=== PATIENT | male | born 1985 | race Caucasian/White ===

== ENCOUNTER 2020-02-20 10:38 | Emergency (ER) | payer OTHER, SELFPAY ==
--- NOTE | ~2020-02-20 | CT_ITS ---
EXAMINATION: CT lumbar spine wo con DATE: 02/20/2020 12:31 INDICATION: Low back pain. Injury. TECHNIQUE: Computed tomography (CT) of the lumbar spine was performed without intravenous contrast. A utomated exposure control and iterative reconstruction technique were employed. The dose-length produ ct was 1260.10 mGy-cm. COMPARISON: None FINDINGS: There is 7 degrees levocurvature of lumbar spine. Vertebral body heights are normal. There is mildly decreased disc height at L4-L5 and L5-S1. The following disc levels are specifically discus sed: L1-L2: The disc does not extend beyond the endplate margin. There is mild bilateral facet joint osteo arthritis. There is no neural foraminal stenosis. There is no central canal stenosis. L2-L3: There is a left foraminal protrusion. There is mild right and moderate left facet joint osteoa rthritis. There is mild left neural foraminal stenosis. There is no central canal stenosis. L3-L4: The disc is mildly bulging. There is mild bilateral facet joint osteoarthritis. There is mild left neural foraminal stenosis. There is mild central canal stenosis. L4-L5: The disc is bulging. There is mild bilateral facet joint osteoarthritis. There is mild bilater al neural foraminal stenosis. There is mild central canal stenosis. L5-S1: The disc is bulging. There is mild bilateral facet joint osteoarthritis. There is mild bilater al neural foraminal stenosis. There is mild central canal stenosis. IMPRESSION: 1. Mild lumbar spondylosis. Reviewed, dictated and finalized at location A. IMPRESSION: 1. Mild lumbar spondylosis.
[2020-02-20 11:22] VITALS: BP 135/95; PULSE 67; RESP 16; TEMP 36.8; O2SAT 98
--- NOTE | 2020-02-20 12:20 | ED.BACK ---
HPI - Back Pain/Injury General Chief Complaint: Back Pain/Injury Stated Complaint: Back Pain Time Seen by Provider: 02/20/20 12:09 Source: patient Mode of arrival: ambulatory Limitations: no limitations History of Present Illness HPI Narrative: This is a 34-year-old male that presents the emergency department for low back pain after a lifting injury. Reports he was lifting this morning. Reports when he went to pick out hand the weight the second time he felt pain in his low back. Reports the pain has been constant since. It is worse with movement and relieved with rest. He has not taken any pain medication. Denies saddle anesthesia, or bowel/bladder incontinence. Related Data Allergies Allergy/AdvReac Type Severity Reaction Status Date / Time No Known Allergies Allergy Verified 02/20/20 11:38 Review of Systems Review of Systems: Narrative: CONSTITUTIONAL: Denies fever SKIN: Denies rash MUSCULOSKELETAL: Reports back pain, joint pain, and myalgia. NEUROLOGIC: Denies numbness, or weakness. All systems reviewed & are unremarkable except as noted in HPI and below PMFSH Social History Social History (Updated 02/20/20 @ 12:21 by Shanika Matson PA-C) Smoking status: Current every day smoker Tobacco type: e-cigarettes/vaping Substance use: never Exam Narrative: Exam Narrative: GENERAL: Well-appearing, well-nourished, and in no acute distress. HEAD: Normocephalic, atraumatic. EYES: EOMI. CHEST: Clear to auscultation. No respiratory distress. No wheezes rales or rhonchi HEART: Regular rate and rhythm. No murmur heard. Normal peripheral pulses. BACK: No midline spinal tenderness EXTREMITIES: Normal range of motion. No edema. Strength equal in bilateral lower extremities (5/5) SKIN: Warm, dry, no rash. NEURO: No focal deficits. Alert and oriented x3. PSYCH: Normal mood and affect Course Vital Signs Vital signs: Vital Signs Temperature 98.2 F 02/20/20 11:22 Pulse Rate 67 02/20/20 11:22 Respiratory Rate 16 02/20/20 11:22 Blood Pressure 135/95 H 02/20/20 11:22 Pulse Oximetry 98 02/20/20 11:22 Temperature 98.2 F 02/20/20 11:22 Pulse Rate 67 02/20/20 11:22 Respiratory Rate 16 02/20/20 11:22 Blood Pressure 135/95 H 02/20/20 11:22 Pulse Oximetry 98 02/20/20 11:22 MDM - Back Pain/Injury MDM Narrative Medical decision making narrative: Patient presents to the emergency department for low back pain after lifting injury today. Patient is neurologically intact. CT scan of the lumbar spine shows mild lumbar spondylosis. Patient and family updated on case findings. He was instructed to rest, use ice/heat and take [id number] pain medication as needed. He will be given muscle relaxer as needed for pain. He is to follow-up with primary care doctor. He was given warnings to return to the ER Imaging Data Radiologist's impression: ITS Impressions Lumbar Spine CT 02/20/20 12:40 IMPRESSION: 1. Mild lumbar spondylosis. Critical Care Time Critical Care Time Critical Care Time: No Discharge Plan Discharge Clinical Impression: Lumbar radiculopathy Patient Disposition: Home, Self-Care Condition: Stable Instructions: Back Pain (ED) Additional Instructions: Return to the ER if you experience weakness, numbness, bowel/bladder incontinence, or any other symptoms that are concerning to you Rest, use ice/heat, take anti-inflammatories (Aleve, Ibuprofen, Naproxen, etc) or Tylenol as needed for pain as well as muscle relaxer (diazepam) as needed for pain. Muscle relaxers can make you drowsy, do not drive if you take this Follow up with primary care doctor Prescriptions: New diazepam 5 mg tablet 5 mg PO BID PRN (Reason: muscle spasm) Qty: 10 RF: 0 Follow-up/Referrals: Demetra Sarkar MD [Physician] - 1 Week PHYSICIAN,MANAGER TESTING [Primary Care Provider] - Stand Alone Forms: Work/School Release IP
[2020-02-20] MEDS: CYCLOBENZAPRINE HCL 10 MG TABLET PO (12:33)
[2020-02-20] MEDS: KETOROLAC (*BKC) 60 MG/2 ML VIAL IM (12:33)
[2020-02-20 13:53] VITALS: BP 132/76; PULSE 70; RESP 17; O2SAT 100
== END 2020-02-20 13:54 | disposition home or self-care (01) ==
PROVIDERS: Emergency Provider Emergency Medicine
DX: M47.816 Spondylosis without myelopathy or radiculopathy, lumbar region (principal); F17.290 Nicotine dependence, other tobacco product, uncomplicated
CPT/HCPCS: 72131; 96372; 99284; A9270; J1885